=== PATIENT | female | born 1965 | race African-American/Black ===

== ENCOUNTER 2019-08-29 18:52 | Emergency (ER) | payer MEDICAID ==
[~2019-08-29] VITALS: Ht 170.2 cm; Wt 69.0 kg
--- NOTE | 2019-08-29 20:17 | NUR ---
PT BACK FROM X RAY AT THIS TIME.
[2019-08-29 20:28] LABS: MICROSCOPIC NOT IND
[2019-08-29 20:32] LABS: ALBUMIN 4.1 g/dL (3.4-5.0); ANION GAP 9 mmol/L (5-15); CALCIUM 9.8 mg/dL (8.5-10.1); CHLORIDE 108 mmol/L (98-107); CREATININE 0.85 mg/dL (0.55-1.02)
[2019-08-29 20:36] LABS: TROPONIN I < 0.015 ng/mL (0.000-0.045)
[2019-08-29 20:56] LABS: MEAN CORPUSCULAR HEMOGLOBIN 29.5 pg (27.0-34.8); MEAN CORPUSCULAR HGB CONC 32.4 g/dL (32.4-35.8); MEAN CORPUSCULAR VOLUME 91.1 fL (80-100); MEAN PLATELET VOLUME 8.9 fL (7.4-10.4); PLATELET COUNT 300 x10^3/uL (130-400); RED BLOOD COUNT 4.28 x10^6/uL (3.82-5.3); RED CELL DISTRIBUTION WIDTH 14.3 % (9.6-15.2)
[2019-08-29 20:57] LABS: MD YES
[2019-08-29 21:42] LABS: <PLATELET ESTIMATE> ADEQUATE; <PLT MORPHOLOGY> NORMAL PLT MORPH; <RBC MORPHOLOGY> NORMAL; EOS#(MANUAL) 0.06 x10^3/uL (0.0-0.4); EOS% (MANUAL) 1 % (1-7); LYMPHS% (MANUAL) 50 % (22-44); MONOS#(MANUAL) 0.45 x10^3/uL (0.3-2.7); MONOS% (MANUAL) 8 % (2-9); SEGS% (MANUAL) 41 % (42-75)
[2019-08-29 21:56] VITALS: BP 145/69
--- NOTE | 2019-08-29 21:58 | NUR ---
REPORT FROM [facility].
== END 2019-08-29 22:21 | disposition home or self-care (01) ==
LOC: ED 22:15
DX: T23.201A Burn of second degree of right hand, unspecified site, initial encounter (principal); T31.0 Burns involving less than 10% of body surface; R07.89 Other chest pain; R10.30 Lower abdominal pain, unspecified; I11.9 Hypertensive heart disease without heart failure; R94.31 Abnormal electrocardiogram [ECG] [EKG]; X58.XXXA Exposure to other specified factors, initial encounter; Y93.89 Activity, other specified; Y92.89 Other specified places as the place of occurrence of the external cause; Y99.8 Other external cause status
CPT/HCPCS: 36415; 71046; 80048; 81003; 82040; 84443; 84484; 85025; 93005; 99285

== ENCOUNTER 2019-10-07 08:07 | Emergency (ER) | payer MEDICAID, OTHER ==
[~2019-10-07] VITALS: Ht 170.2 cm; Wt 72.7 kg
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
--- NOTE | 2019-10-07 08:47 | NUR ---
PT AMB TO BR AND BACK TO ROOM WITH STEADY GAIT. PT PROVIDED URINE SAMPLE. URINE COLLECTED AND UA SENT.
[2019-10-07] MEDS ORDERED: MAALOX/HYOSCYAMINE/LIDOCAINE 45 ML BTL ONE (08:58)
--- NOTE | 2019-10-07 08:59 | NUR ---
PT MEDICATED PER EMAR. PT TOLERATED WELL.
[2019-10-07] MEDS ORDERED: MAALOX/HYOSCYAMINE/LIDOCAINE 45 ML BTL PO ONE (09:00)
[2019-10-07 09:14] LABS: MICROSCOPIC NOT IND
[2019-10-07 09:17] LABS: ALANINE AMINOTRANSFERASE 37 U/L (12-78); ALBUMIN 4.2 g/dL (3.4-5.0); ANION GAP 5 mmol/L (5-15); CALCIUM 9.7 mg/dL (8.5-10.1); CHLORIDE 109 mmol/L (98-107); CREATININE 0.73 mg/dL (0.55-1.02)
[2019-10-07 09:22] LABS: ALKALINE PHOSPHATASE 56 U/L (45-117); BILIRUBIN,TOTAL 0.5 mg/dL (0.2-1.0); TOTAL PROTEIN 8.6 g/dL (6.4-8.2); TROPONIN I < 0.015 ng/mL (0.000-0.045)
--- NOTE | 2019-10-07 09:29 | NUR ---
[facility] AT BEDSIDE AT THIS TIME.
[2019-10-07 09:37] LABS: MD YES; MEAN CORPUSCULAR HEMOGLOBIN 30.8 pg (27.0-34.8); MEAN CORPUSCULAR HGB CONC 33.2 g/dL (32.4-35.8); MEAN CORPUSCULAR VOLUME 92.8 fL (80-100); MEAN PLATELET VOLUME 8.4 fL (7.4-10.4); PLATELET COUNT 309 x10^3/uL (130-400); RED CELL DISTRIBUTION WIDTH 15.7 % (9.6-15.2)
[2019-10-07 09:39] LABS: BAND#(MANUAL) 0.09 x10^3/uL; BANDS%(MANUAL) 2 % (0-7); LYMPH#(MANUAL) 2.16 x10^3/uL (1-3.4); LYMPHS% (MANUAL) 48 % (22-44); MONOS#(MANUAL) 0.18 x10^3/uL (0.3-2.7); MONOS% (MANUAL) 4 % (2-9); SEG#(MANUAL) 2.07 x10^3/uL (1.8-6.8); SEGS% (MANUAL) 46 % (42-75)
[2019-10-07 09:40] LABS: <PLATELET ESTIMATE> ADEQUATE; <PLT MORPHOLOGY> NORMAL PLT MORPH; <RBC MORPHOLOGY> NORMAL
--- NOTE | 2019-10-07 09:55 | NUR ---
WATER PROVIDED PER REQUEST. PA NOTIFIED.
--- NOTE | 2019-10-07 10:30 | NUR ---
[facility] AT BEDSIDE STILL AT THIS TIME.
[2019-10-07 10:31] VITALS: BP 174/97
--- NOTE | 2019-10-07 10:52 | NUR ---
Patient given discharge instructions and they have confirmed that they understand the instructions. Patient ambulatory with steady gait.
== END 2019-10-07 10:53 | disposition home or self-care (01) ==
LOC: ED 09:22
DX: T74.21XA Adult sexual abuse, confirmed, initial encounter (principal); R07.89 Other chest pain; I11.9 Hypertensive heart disease without heart failure; R94.31 Abnormal electrocardiogram [ECG] [EKG]; X58.XXXA Exposure to other specified factors, initial encounter; Y93.89 Activity, other specified; Y92.89 Other specified places as the place of occurrence of the external cause; Y99.8 Other external cause status; Y07.9 Unspecified perpetrator of maltreatment and neglect
CPT/HCPCS: 36415; 71045; 80053; 81003; 83690; 84484; 85025; 93005; 99285